=== PATIENT | female | born 1985 | race American Indian/Alaskan Native ===

== ENCOUNTER 2019-12-10 08:35 | Emergency (ER) | payer SELFPAY ==
[2019-12-10] MEDS ORDERED: IBUPROFEN 800 MG TAB PO ONE (09:13)
--- NOTE | 2019-12-10 09:54 | XRay Report ---
LEFT KNEE 4 VIEWS INDICATION / CLINICAL INFORMATION: s/p injury with pain and effusion. COMPARISON: None available. FINDINGS: No significant skeletal abnormality. Signer Name: Meliton Rosario MD FACGaldino Signed: 12/10/2019 9:50 AM Workstation Name: [id number]
--- NOTE | 2019-12-10 10:23 | Emergency Department Report ---
ED Extremity Problem HPI - General Chief complaint: Extremity Injury, Lower Stated complaint: LFT KNEE SWELLING/PAIN Time Seen by Provider: 12/10/19 09:08 Source: patient Mode of arrival: Ambulatory Limitations: No Limitations - History of Present Illness Initial comments: Patient is a 34-year-old F [place] female who states that 4 days ago she was at home drinking and dancing and believes she may have stumbled while trying to get to her room and injured her left knee. Patient states the next morning she had swelling to the knee and is been unable to fully bend or extend the knee and also is having difficulty bearing weight. Pain is 9 out of 10 in severity. Patient states because of alcohol intoxication she was unclear of what she actually did to her D. She states she believes she hit it but she cannot remember if she fell or just ran into something. Severity scale (0 -10): 9 - Related Data Previous Rx's Medication Instructions Recorded Last Taken Type Ketorolac [Toradol] 10 mg PO Q6H PRN #12 tablet 12/10/19 Unknown Rx traMADoL [Ultram] 50 mg PO Q6HR PRN #12 tablet 12/10/19 Unknown Rx Allergies Allergy/AdvReac Type Severity Reaction Status Date / Time No Known Allergies Allergy Unverified 12/10/19 08:35 ED Review of Systems ROS: Stated complaint: LFT KNEE SWELLING/PAIN Other details as noted in HPI Comment: All other systems reviewed and negative ED Past Medical Hx - Past Medical History Additional medical history: SARCOIDOSIS - Surgical History Additional Surgical History: back CERVIX - Social History Smoking Status: Never Smoker Substance Use Type: Alcohol - Medications Home Medications: Home Medications Medication Instructions Recorded Confirmed Last Taken Type Ketorolac [Toradol] 10 mg PO Q6H PRN #12 tablet 12/10/19 Unknown Rx traMADoL [Ultram] 50 mg PO Q6HR PRN #12 tablet 12/10/19 Unknown Rx ED Physical Exam - General Limitations: No Limitations General appearance: alert, in no apparent distress - Head Head exam: Present: atraumatic, normocephalic - Eye Eye exam: Present: normal appearance - ENT ENT exam: Present: mucous membranes moist - Neck Neck exam: Present: normal inspection - Respiratory Respiratory exam: Present: normal lung sounds bilaterally. Absent: respiratory distress - Cardiovascular Cardiovascular Exam: Present: regular rate, normal rhythm. Absent: systolic murmur, diastolic murmur, rubs, gallop - GI/Abdominal GI/Abdominal exam: Present: soft, normal bowel sounds - Extremities Exam Extremities exam: Present: normal inspection - Expanded Lower Extremity Exam Left Knee exam: Present: tenderness, swelling, effusion. Absent: full ROM, ecchymosis, deformity - Back Exam Back exam: Present: normal inspection - Neurological Exam Neurological exam: Present: alert, oriented X3 - Psychiatric Psychiatric exam: Present: normal affect, normal mood - Skin Skin exam: Present: warm, dry, intact, normal color. 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 COMPARISON: None available. FINDINGS: No significant skeletal abnormality. Signer Name: Meliton Rosario MD FACR Signed: 12/10/2019 8:50 AM Workstation Name: [id number] - Medical Decision Making Patient is a 34-year-old F [place] female who states she injured her knee several days ago. Patient does not remember exactly what she did as she was intoxicated at the time. Patient does have significant swelling and decreased range of motion secondary to pain and swelling. No fractures seen on x-ray. Patient will be placed in a knee immobilizer and given crutches and will follow with orthopedics. Critical care attestation.: If time is entered above; I have spent that time in minutes in the direct care of this critically ill patient, excluding procedure time. ED Disposition Clinical Impression: Internal derangement of knee Qualifiers: Laterality: left Qualified Code(s): M23.92 - Unspecified internal derangement of left knee Disposition: DC-01 TO HOME OR SELFCARE Is pt being admited?: No Does the pt Need Aspirin: No Condition: Stable Instructions: Knee Effusion (ED) Referrals: [facility] [Provider Group] - 3-5 Days Time of Disposition: 10:24
[2019-12-10 11:00] VITALS: BP 134/70
== END 2019-12-10 10:58 | disposition home or self-care (01) ==
LOC: ED 08:35
DX: M23.92 Unspecified internal derangement of left knee (principal); Z98.890 Other specified postprocedural states; Z79.899 Other long term (current) drug therapy

== ENCOUNTER → 2020-03-04 | Emergency (ER) | payer SELFPAY ==
[2020-03-04 12:40] VITALS: BP 126/78
== END ==
LOC: ED 12:34
DX: I10 Essential (primary) hypertension (principal); Z53.21 Procedure and treatment not carried out due to patient leaving prior to being seen by health care provider
CPT/HCPCS: 93005